=== PATIENT | male | born 1955 | race American Indian/Alaskan Native ===

== ENCOUNTER 2018-12-13 17:00 | Emergency (ER) | payer OTHER ==
[2018-12-13] MEDS ORDERED: CATAPRES PO ONE ×2 (17:14→22:58)
--- NOTE | 2018-12-13 17:14 | Emergency Department Report ---
Blank Doc - Documentation Documentation: This is a 63-year-old male that presents with uncontrolled HTN. Patient denies any headache but states has dizziness. This initial assessment/diagnostic orders/clinical plan/treatment(s) is/are subject to change based on patient's health status, clinical progression and re-assessment by fellow clinical providers in the ED. Further treatment and workup at subsequent clinical providers discretion. Patient/guardians urged not to elope from the ED as their condition may be serious if not clinically assessed and managed. Initial orders include: 1- Patient sent to MAIN ED for further evaluation and treatment 2- Capatress 3- CT head
[2018-12-13 17:32] LABS: Basophils % (Auto) 0.8 % (0.0-1.8); Eosinophils # (Auto) 0.2 K/mm3 (0.0-0.4); Eosinophils % (Auto) 3.7 % (0.0-4.3); Hematocrit 34.2 % (35.5-45.6); Hemoglobin 11.5 gm/dl (11.8-15.2); Lymphocytes # (Auto) 1.5 K/mm3 (1.2-5.4); Lymphocytes % (Auto) 33.6 % (13.4-35.0); Mean Corpuscular HGB Conc 34 % (32-34); Mean Corpuscular Volume 86 fl (84-94); Monocytes # (Auto) 0.3 K/mm3 (0.0-0.8); Monocytes % (Auto) 7.7 % (0.0-7.3); Platelet Count 213 K/mm3 (140-440); Red Blood Count 3.98 M/mm3 (3.65-5.03); Red Cell Distribution Width 15.9 % (13.2-15.2)
[2018-12-13 17:49] LABS: BUN/Creatinine Ratio 8; Blood Urea Nitrogen 8 mg/dL (9-20); Calcium 9.3 mg/dL (8.4-10.2); Hemolysis Index 10
--- NOTE | 2018-12-13 19:11 | Cat Scan Report ---
PROCEDURE: CT HEAD/BRAIN WO CON TECHNIQUE: Computerized tomography of the head was performed without contrast material. Imaging was obtained in axial increments. Sagittal and coronal reconstruction was also obtained. CT DOSE LENGTH PRODUCT: 1840.95 mGycm HISTORY: dizziness with HTN COMPARISONS: None . FINDINGS: The ventricular system is normal in size and configuration. There is no evidence for parenchymal volu me loss. There is no evidence for mass lesion, mass effect, midline shift, acute intracranial hemorrhage, or a cute ischemia/ infarction. No evidence for acute skull fracture is seen. No abnormality in the overlying scalp soft tissues is s een. Visualized paranasal sinuses are clear. IMPRESSION: No acute intracranial process noted. This document is electronically signed by Polly Wellington MD., December 13 2018 07:09:11 PM ET
--- NOTE | 2018-12-13 19:57 | Emergency Department Report ---
ED General Adult HPI - General Chief complaint: High BP Stated complaint: HIGH BP/STOMACH SIDE PAIN Time Seen by Provider: 12/13/18 17:12 Source: patient Mode of arrival: Ambulatory Limitations: No Limitations - History of Present Illness Initial comments: Patient is 63 years old male with history of hypertension. Patient presented to the ER complaining of dizziness and high blood pressure. Patient is also complaining of abdominal pain to the left upper quadrant for the last few days. Patient described his pain as a burning sensation inside. Patient denied any nausea or vomiting. Patient also denied any fever or chills. Patient stated that he missed his clonidine dose this morning. Patient denied any weakness, numbness or tingling sensation. Severity scale (0 -10): 0 - Related Data Home Medications Medication Instructions Recorded Confirmed Last Taken Lisinopril [Zestril] 20 mg PO QDAY 09/04/14 09/04/14 Unknown Previous Rx's Medication Instructions Recorded Last Taken Type Azithromycin [Zithromax Z-DIMAS] 250 mg PO DAILY #6 tablet 09/04/14 Unknown Rx Benzonatate [Tessalon Perles] 100 mg PO Q8HR #14 capsule 09/04/14 Unknown Rx amLODIPine [Norvasc] 10 mg PO DAILY #30 tab 09/04/14 Unknown Rx HYDROcodone/APAP 5-325 [[place] 1 each PO Q6HR PRN #14 tablet 10/10/15 Unknown Rx 5-325 mg TAB] cloNIDine [Catapres] 0.1 mg PO BID #60 tablet 10/10/15 Unknown Rx Allergies Allergy/AdvReac Type Severity Reaction Status Date / Time No Known Allergies Allergy Verified 10/10/15 12:25 ED Review of Systems ROS: Stated complaint: HIGH BP/STOMACH SIDE PAIN Other details as noted in HPI Comment: All other systems reviewed and negative Constitutional: denies: chills, fever Respiratory: denies: cough, shortness of breath, SOB with exertion Cardiovascular: denies: chest pain, palpitations Gastrointestinal: abdominal pain. denies: nausea, vomiting, diarrhea Musculoskeletal: denies: back pain Neurological: denies: headache, weakness, numbness, paresthesias, confusion, abnormal gait ED Past Medical Hx - Past Medical History Hx Hypertension: Yes Additional medical history: Gout. Negative cardiac catheterization on 09/22/2014 - Surgical History Past Surgical History?: No - Social History Smoking Status: Former Smoker Substance Use Type: None - Medications Home Medications: Home Medications Medication Instructions Recorded Confirmed Last Taken Type Azithromycin [Zithromax Z-DIMAS] 250 mg PO DAILY #6 tablet 09/04/14 Unknown Rx Benzonatate [Tessalon Perles] 100 mg PO Q8HR #14 capsule 09/04/14 Unknown Rx Lisinopril [Zestril] 20 mg PO QDAY 09/04/14 09/04/14 Unknown History amLODIPine [Norvasc] 10 mg PO DAILY #30 tab 09/04/14 Unknown Rx HYDROcodone/APAP 5-325 [[place] 1 each PO Q6HR PRN #14 tablet 10/10/15 Unknown Rx 5-325 mg TAB] cloNIDine [Catapres] 0.1 mg PO BID #60 tablet 10/10/15 Unknown Rx ED Physical Exam - General Limitations: No Limitations General appearance: alert, in no apparent distress - Head Head exam: Present: atraumatic, normocephalic, normal inspection - Eye Eye exam: Present: normal appearance - ENT ENT exam: Present: normal exam, normal orophraynx, mucous membranes moist - Neck Neck exam: Present: normal inspection, full ROM. Absent: tenderness, meningismus, lymphadenopathy, thyromegaly - Respiratory Respiratory exam: Present: normal lung sounds bilaterally - Cardiovascular Cardiovascular Exam: Present: regular rate, normal rhythm, normal heart sounds - GI/Abdominal GI/Abdominal exam: Present: soft, tenderness, normal bowel sounds. Absent: distended, guarding, rebound (left upper quadrant), rigid, diminished bowel sounds, mass, bruit, pulsatile mass, hernia - Extremities Exam Extremities exam: Present: normal inspection, full ROM, normal capillary refill. Absent: tenderness, pedal edema, calf tenderness - Back Exam Back exam: Present: normal inspection, full ROM. Absent: tenderness, CVA tenderness (R), CVA tenderness (L), muscle spasm, paraspinal tenderness, vertebral tenderness, rash noted - Neurological Exam Neurological exam: Present: alert, oriented X3, CN II-XII intact, normal gait, reflexes normal - Skin Skin exam: Present: warm, intact, normal color ED Course Vital Signs 12/13/18 12/13/18 12/13/18 17:05 17:10 18:56 Temperature 97.5 F L 97 F L Pulse Rate 68 68 70 Respiratory 20 20 Rate Blood Pressure 208/104 239/110 Blood Pressure 208/104 [Right] O2 Sat by Pulse 98 98 Oximetry 12/13/18 12/13/18 12/13/18 19:38 19:57 22:33 Temperature 97 F L 97 F L 97 F L Pulse Rate 68 72 50 L Respiratory 18 18 18 Rate Blood Pressure Blood Pressure 179/100 158/85 167/86 [Right] O2 Sat by Pulse 98 98 98 Oximetry ED Medical Decision Making - Lab Data Result diagrams: 12/13/18 17:21 12/13/18 17:21 - Radiology Data Radiology results: report reviewed Referring Physician: AUDI DURHAM Patient Name: JUAN MATHEW Date of : 1955 Sex: Male Report Date: 2018-12-13 Report Status: [place] [address] Cat Scan Report Signed Patient: JUAN MATHEW MR#: [id number] : 1955 Acct:[id number] Age/Sex: 63 / M ADM Date: 12/13/18 Loc: ED Attending Dr: Ordering Physician: AUDI DURHAM Date of Service: 12/13/18 Procedure(s): CT abdomen pelvis w con Accession Number(s): [id number] cc: AUDI DURHAM PROCEDURE: CT ABDOMEN PELVIS W CON TECHNIQUE: Computerized axial tomography of the abdomen and pelvis was performed after the IV injection of iodinated nonionic contrast. CT DOSE LENGTH PRODUCT: mGycm HISTORY: abdominal pain/LUQ TENDERNESS COMPARISONS: None . FINDINGS: Multiple small pleural based densities are noted in the visualized right lower lung associated with irregular linear densities in the adjacent lung. Liver, spleen, pancreas and adrenal glands are within normal limits. Bilateral kidneys demonstrate uniform enhancement without hydronephrosis. Urinary bladder is partially filled with normal outlines. Aorta is of normal caliber. There is no free fluid or free air. Gallbladder is contracted. Small bowel loops are within normal limits. There is mild residual stool. Appendix is normal. Moderate degree of prostatomegaly is identified. Vertebral height is normal. Moderate degree of degenerative changes are noted involving the lumbar spine with evidence of spinal canal stenosis at L4-5. An irregular sclerotic density measuring 5 mm is noted in the T11 vertebral body. A 3 mm sclerotic density is noted in the posterior left iliac bone. IMPRESSION: Irregular pleural-based densities in the visualized right lower lung most likely represent round atelectasis. Moderate degree of prostatomegaly Spinal canal stenosis L4-5 Small sclerotic densities involving T11 vertebral body and left iliac bone are of nonspecific nature. Neoplastic lesions such as metastases cannot be excluded in the appropri ate clinical setting. Bone scan may be recommended. This document is electronically signed by Octavio Morales MD., December 13 2018 09:46:28 PM ET Transcribed By: [facility] [place] Dictated By: OCTAVIO MORALES Electronically Authenticated By: OCTAVIO MORALES Signed Date/Time: 12/13/182147 DD/ 26 TD/TT: 12/13/182127 - Medical Decision Making Patient stated that he is feeling much better. Patient and his inform about the CT abdomen and pelvis finding and the need to follow-up for further management. Patient discharged from the ER and a stable clinical condition. Critical care attestation.: If time is entered above; I have spent that time in minutes in the direct care of this critically ill patient, excluding procedure time. ED Disposition Clinical Impression: Abdominal pain, Malignant hypertension Disposition: -01 TO HOME OR SELFCARE Is pt being admited?: No Condition: Stable Instructions: Abdominal Pain (ED), Hypertension (ED) Referrals: [facility] [Other] - 3-5 Days
--- NOTE | 2018-12-13 21:48 | Cat Scan Report ---
PROCEDURE: CT ABDOMEN PELVIS W CON TECHNIQUE: Computerized axial tomography of the abdomen and pelvis was performed after the IV inject ion of iodinated nonionic contrast. CT DOSE LENGTH PRODUCT: mGycm HISTORY: abdominal pain/LUQ TENDERNESS COMPARISONS: None . FINDINGS: Multiple small pleural based densities are noted in the visualized right lower lung associated with i rregular linear densities in the adjacent lung. Liver, spleen, pancreas and adrenal glands are within normal limits. Bilateral kidneys demonstrate uniform enhancement without hydronephrosis. Urinary vanda dder is partially filled with normal outlines. Aorta is of normal caliber. There is no free fluid or free air. Gallbladder is contracted. Small bowel loops are within normal limits. There is mild residu al stool. Appendix is normal. Moderate degree of prostatomegaly is identified. Vertebral height is no rmal. Moderate degree of degenerative changes are noted involving the lumbar spine with evidence of s leonides canal stenosis at L4-5. An irregular sclerotic density measuring 5 mm is noted in the T11 verte bral body. A 3 mm sclerotic density is noted in the posterior left iliac bone. IMPRESSION: Irregular pleural-based densities in the visualized right lower lung most likely represent round atel ectasis. Moderate degree of prostatomegaly Spinal canal stenosis L4-5 Small sclerotic densities involving T11 vertebral body and left iliac bone are of nonspecific nature. Neoplastic lesions such as metastases cannot be excluded in the appropriate clinical setting. Bone s can may be recommended. This document is electronically signed by Robinson Morales MD., December 13 2018 09:46:28 PM ET
[2018-12-14 00:09] VITALS: BP 150/84
== END 2018-12-14 00:13 | disposition home or self-care (01) ==
LOC: ED 17:00
DX: I10 Essential (primary) hypertension (principal); R10.9 Unspecified abdominal pain
CPT/HCPCS: 36415; 70450; 74177; 80048; 85025; 99284; Q9967

== ENCOUNTER 2019-07-13 08:09 | Emergency (ER) | payer OTHER ==
[2019-07-13] MEDS ORDERED: methylPREDNISolone ACETATE 80 MG/1 ML INJ IM ONE (09:12)
[2019-07-13] MEDS ORDERED: IBUPROFEN 800 MG TAB PO ONE (09:12)
[2019-07-13] MEDS ORDERED: COLCHICINE 0.6 MG CAP PO ONE (09:12)
--- NOTE | 2019-07-13 09:16 | Emergency Department Report ---
HPI - General Chief Complaint: Extremity Injury, Upper Time Seen by Provider: 07/13/19 09:07 - HPI HPI: Pt is a pleasant 63 yo male who comes to ER with gout flare. Pt states it has been a while since he had it but its back. No fall or trauma. PMH HTN and gout. Home Rx for BP he thinks amlodipine. co r 5th finger pain; b knee pain; l foot pain and l hand pain r finger and l hand red and swollen Has been hurting for 2 days but he initially ignored it. Today he went to work and it hurt so bad that he came to the ER. 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 He is not sure what the trigger was ED Past Medical Hx - Past Medical History Hx Hypertension: Yes Additional medical history: Gout. Negative cardiac catheterization on 09/22/2014 - Surgical History Past Surgical History?: No - Family History Family history: no significant - Social History Smoking Status: Former Smoker Substance Use Type: None - Medications Home Medications: Home Medications Medication Instructions Recorded Confirmed Last Taken Type Lisinopril [Zestril] 20 mg PO QDAY 09/04/14 09/04/14 Unknown History amLODIPine [Norvasc] 10 mg PO DAILY #30 tab 09/04/14 Unknown Rx cloNIDine [Catapres] 0.1 mg PO BID #60 tablet 12/13/18 Unknown Rx Colchicine 0.6 mg PO DAILY #9 capsule 07/13/19 Unknown Rx Ibuprofen [Motrin] 800 mg PO Q8HR PRN #30 tablet 07/13/19 Unknown Rx predniSONE [Deltasone] 20 mg PO DAILY #5 tablet 07/13/19 Unknown Rx ED Review of Systems ROS: Stated complaint: GOUT/HAND/FOOT/KNEE Other details as noted in HPI Comment: All other systems reviewed and negative Physical Exam - Physical Exam Physical Exam: alert and oriented x 4 r 5th digit red and swollen l hand red and swollen b knees wnl exam l foot wnl exam ambulatory with his usual cane s1s2 lungs cta abd snt ED Medical Decision Making - Medical Decision Making no trauma/fall a/c gout pt has had in past he is on no routine meds for gout; takes no pain meds. Medicated in ER for pain/gout dc home with dc plan of care and pcp follow up this week. - Differential Diagnosis a/c gout Critical care attestation.: If time is entered above; I have spent that time in minutes in the direct care of this critically ill patient, excluding procedure time. ED Disposition Clinical Impression: Gout flare Disposition: TO HOME OR SELFCARE Is pt being admited?: No Does the pt Need Aspirin: No Condition: Stable Instructions: Acute Gouty Arthritis (ED) Additional Instructions: DRINK A LOT OF WATER AND STAY HYDRATED MEDS ORDERED TODAY FOLLOW UP WITH PCP WE DISCUSSED SHE CAN GIVE YOU MEDS TO PREVENT GOUT FLARES TRY TO IDENTIFY TRIGGERS OF GOUT AND AVOID Referrals: PRIMARY CARE, [Primary Care Provider] - 3-5 Days Time of Disposition: 09:13
[2019-07-13 09:31] VITALS: BP 169/95
== END 2019-07-13 10:28 | disposition home or self-care (01) ==
LOC: ED 08:09
DX: M10.9 Gout, unspecified (principal); I10 Essential (primary) hypertension; Z87.891 Personal history of nicotine dependence; Z79.899 Other long term (current) drug therapy
CPT/HCPCS: 96372; 99282; J1040

== ENCOUNTER 2020-06-11 08:23 | Emergency (ER) | payer OTHER ==
[2020-06-11 08:28] VITALS: BP 165/97
[2020-06-11] MEDS ORDERED: dexAMETHasone 20 MG/5 ML VIAL IM ONE (08:42)
[2020-06-11] MEDS ORDERED: traMADol 50 MG TAB PO ONE (08:42)
--- NOTE | 2020-06-11 09:08 | Emergency Department Report ---
ED General Adult HPI - General Chief complaint: Extremity Injury, Lower Stated complaint: GAUT Time Seen by Provider: 06/11/20 08:31 Source: patient Mode of arrival: Wheelchair Limitations: No Limitations - History of Present Illness Initial comments: Patient is a 64-year-old male presents emergency room with complaints of acute gout flare that began 4 days ago. He states that he has a flare in his right knee and his left foot. Patient states he attempts to follow the diet for gout. He is not on any current gout medications. He states that he does have a primary care physician. He denies any fall or injury. He denies any fever, vomiting, diarrhea, numbness, weakness. He states he also has a past medical history of hypertension but states he has not taken his blood pressure medication in 2 days. He states that he does have the medication just forgot to take it. Patient states that he will take the medication once he returns home. - Related Data Home Medications Medication Instructions Recorded Confirmed Last Taken lisinopriL [Zestril] 20 mg PO QDAY 09/04/14 09/04/14 Unknown Previous Rx's Medication Instructions Recorded Last Taken Type amLODIPine 10 mg PO DAILY #30 tab 09/04/14 Unknown Rx cloNIDine [Catapres] 0.1 mg PO BID #60 tablet 12/13/18 Unknown Rx Ibuprofen [Motrin] 800 mg PO Q8HR PRN #30 tablet 07/13/19 Unknown Rx predniSONE [Deltasone] 20 mg PO DAILY #5 tablet 07/13/19 Unknown Rx Colchicine 0.6 mg PO DAILY 1 Days #3 capsule 06/11/20 Unknown Rx Indomethacin 50 mg PO TID 7 Days #21 capsule 06/11/20 Unknown Rx Prednisone [predniSONE 10 mg 10 mg PO .TAPER #1 tab.ds.pk 06/11/20 Unknown Rx (6-Day Pack, 21 Tabs)] Allergies Allergy/AdvReac Type Severity Reaction Status Date / Time No Known Allergies Allergy Verified 07/13/19 08:22 ED Review of Systems ROS: Stated complaint: GAUT Other details as noted in HPI Comment: All other systems reviewed and negative ED Past Medical Hx - Past Medical History Previous Medical History?: Yes Hx Hypertension: Yes Additional medical history: Gout. Negative cardiac catheterization on 09/22/2014 - Surgical History Past Surgical History?: No - Social History Smoking Status: Never Smoker Substance Use Type: None - Medications Home Medications: Home Medications Medication Instructions Recorded Confirmed Last Taken Type amLODIPine 10 mg PO DAILY #30 tab 09/04/14 Unknown Rx lisinopriL [Zestril] 20 mg PO QDAY 09/04/14 09/04/14 Unknown History cloNIDine [Catapres] 0.1 mg PO BID #60 tablet 12/13/18 Unknown Rx Ibuprofen [Motrin] 800 mg PO Q8HR PRN #30 tablet 07/13/19 Unknown Rx predniSONE [Deltasone] 20 mg PO DAILY #5 tablet 07/13/19 Unknown Rx Colchicine 0.6 mg PO DAILY 1 Days #3 capsule 06/11/20 Unknown Rx Indomethacin 50 mg PO TID 7 Days #21 capsule 06/11/20 Unknown Rx Prednisone [predniSONE 10 mg 10 mg PO .TAPER #1 tab.ds.pk 06/11/20 Unknown Rx (6-Day Pack, 21 Tabs)] ED Physical Exam - General Limitations: No Limitations General appearance: alert, in no apparent distress - Head Head exam: Present: atraumatic, normocephalic - Eye Eye exam: Present: normal appearance - ENT ENT exam: Present: mucous membranes moist - Respiratory Respiratory exam: Present: normal lung sounds bilaterally. Absent: respiratory distress, wheezes, rales, rhonchi, stridor, chest wall tenderness, accessory muscle use, decreased breath sounds, prolonged expiratory - Cardiovascular Cardiovascular Exam: Present: regular rate, normal rhythm, normal heart sounds. Absent: systolic murmur, diastolic murmur, rubs, gallop - Extremities Exam Extremities exam: Present: other (edema and increased warmth present to the right knee and the left foot, no erythema, no skin changes, he has FROM of the BLE, he is neurovascularly intact bilaterally) - Neurological Exam Neurological exam: Present: alert, oriented X3 - Psychiatric Psychiatric exam: Present: normal affect, normal mood - Skin Skin exam: Present: warm, dry, intact ED Course Vital Signs 06/11/20 08:24 Temperature 98.7 F Pulse Rate 115 H Respiratory 18 Rate Blood Pressure 165/97 O2 Sat by Pulse 96 Oximetry ED Medical Decision Making - Lab Data Vital Signs 06/11/20 06/11/20 08:24 16:40 Temperature 98.7 F Pulse Rate 115 H 102 H Respiratory 18 Rate Blood Pressure 165/97 O2 Sat by Pulse 96 Oximetry - Medical Decision Making Patient is a 64-year-old male presents emergency room with complaints of acute gout flare that began 4 days ago. He states that he has a flare in his right knee and his left foot. Patient states he attempts to follow the diet for gout. He is not on any current gout medications. He states that he does have a primary care physician. He denies any fall or injury. He denies any fever, vomiting, diarrhea, numbness, weakness. He states he also has a past medical history of hypertension but states he has not taken his blood pressure medication in 2 days. He states that he does have the medication just forgot to take it. Patient states that he will take the medication once he returns home. initial triage vitals with elevated HR which improved upon repeat, BP slightly elevated secondary to pt not taking his medication. on exam: edema and increased warmth present to the right knee and the left foot, no erythema, no skin changes, he has FROM of the BLE, he is neurovascularly intact bilaterally. Examination appears consistent with acute gout flare. Does not appear to have septic joint. Patient given dexamethasone IM in the emergency department as he did not drive. Patient given prescription for colchicine, indomethacin, prednisone Dosepak. Advised patient to please take medication as prescribed. Increase your water intake. Please follow the diet for gout. Please follow-up with your primary care doctor and discuss a chronic gout medication. Please take your blood pressure medication as prescribed by your primary care physician. Eat a low-sodium diet. Incorporate 30 to 60 minutes of aerobic exercise daily. Return to emergency room for any new or worsening symptoms. Critical care attestation.: If time is entered above; I have spent that time in minutes in the direct care of this critically ill patient, excluding procedure time. ED Disposition Clinical Impression: Elevated blood pressure reading Acute gout Qualifiers: Gout site: multiple sites Gout etiology: unspecified cause Qualified Code(s): M10.9 - Gout, unspecified Disposition: - TO HOME OR SELFCARE Is pt being admited?: No Does the pt Need Aspirin: No Condition: Stable Instructions: Acute Gouty Arthritis (ED), Hypertension (ED) Additional Instructions: please take medication as prescribed. Increase your water intake. Please follow the diet for gout. Please follow-up with your primary care doctor and discuss a chronic gout medication. Please take your blood pressure medication as prescribed by your primary care physician. Eat a low-sodium diet. Incorporate 30 to 60 minutes of aerobic exercise daily. Return to emergency room for any new or worsening symptoms. Prescriptions: Colchicine 0.6 mg PO DAILY 1 Days #3 capsule Indomethacin 50 mg PO TID 7 Days #21 capsule Prednisone [predniSONE 10 mg (6-Day Pack, 21 Tabs)] 10 mg PO .TAPER #1 tab.ds.pk Referrals: PRIMARY CAREMD [Primary Care Provider] - 2-3 Days SALVATORE FRANCIS MD [Staff Physician] - 2-3 Days Forms: Work/School Release Form(ED) Time of Disposition: 09:08 Print Language: KAZAKH
== END 2020-06-11 09:21 | disposition home or self-care (01) ==
LOC: ED 08:23
DX: M10.9 Gout, unspecified (principal); R03.0 Elevated blood-pressure reading, without diagnosis of hypertension; I10 Essential (primary) hypertension; Z79.899 Other long term (current) drug therapy
CPT/HCPCS: 96372; 99282; J1100

== ENCOUNTER 2020-12-25 16:54 | Emergency (ER) | payer OTHER ==
[2020-12-25] MEDS ORDERED: hydrALAZINE 25 MG TAB PO ONE (19:39)
--- NOTE | 2020-12-25 20:01 | XRay Report ---
CHEST 1 VIEW 1936 INDICATION / CLINICAL INFORMATION: hypertension congestion COMPARISON: None available. FINDINGS: SUPPORT DEVICES: None HEART / MEDIASTINUM: No significant abnormality. LUNGS / PLEURA: No definite acute infiltrates are seen. There may be slight atelectasis or scarring i n the lung bases. Possibly there is a minimal right pleural effusion. No pneumothorax. ADDITIONAL FINDINGS: No significant additional findings. Signer Name: Chris Hernandez MD Signed: 12/25/2020 7:57 PM Workstation Name: [id number]
[2020-12-25 20:07] LABS: Hemoglobin 11.6 gm/dl (11.8-15.2); Mean Corpuscular HGB Conc 33 % (32-34); Mean Corpuscular Volume 86 fl (84-94); Platelet Count 179 K/mm3 (140-440); Red Blood Count 4.07 M/mm3 (3.65-5.03); Red Cell Distribution Width 17.9 % (13.2-15.2)
[2020-12-25 20:19] LABS: Basophils % (Auto) 1.3 % (0.0-1.8); Eosinophils % (Auto) 11.9 % (0.0-4.3); Lymphocytes # (Auto) 1.1 K/mm3 (1.2-5.4); Lymphocytes % (Auto) 32.9 % (13.4-35.0); Monocytes # (Auto) 0.3 K/mm3 (0.0-0.8); Monocytes % (Auto) 10.1 % (0.0-7.3)
[2020-12-25 20:20] LABS: Eosinophils # (Auto) 0.4 K/mm3 (0.0-0.4)
[2020-12-25 20:30] LABS: Alanine Aminotransferase 14 units/L (7-56); Albumin 4.1 g/dL (3.9-5); BUN/Creatinine Ratio 7; Blood Urea Nitrogen 6 mg/dL (9-20); Calcium 9.4 mg/dL (8.4-10.2); Hemolysis Index 5
--- NOTE | 2020-12-25 21:10 | Emergency Department Report ---
ED General Adult HPI - General Chief complaint: High BP Stated complaint: BLOOD PRESSURE HIGH Time Seen by Provider: 12/25/20 19:36 Source: patient Mode of arrival: Ambulatory Limitations: No Limitations - History of Present Illness Initial comments: Patient 65-year-old male with history of hypertension and gout., who presents after visit to PCP office today with elevated BP 197/104. Patient currently taking lisinopril and amlodipine. Has n jointot taken medications for 2 days. Patient denies chest pain does state upper respiratory symptoms with head congestion. There is no fever, chills, shortness of breath no wheezing no stridor, no nausea vomiting. Patient does state mild headache 2/3 frontal consistent with headaches associated with elevated BP in past. There is no numbness, tingling no loss or decrease in vision no dizziness or lighth eadedness. - Related Data Home Medications Medication Instructions Recorded Confirmed Last Taken lisinopriL [Zestril] 20 mg PO QDAY 09/04/14 09/04/14 Unknown Previous Rx's Medication Instructions Recorded Last Taken Type amLODIPine 10 mg PO DAILY #30 tab 09/04/14 Unknown Rx cloNIDine [Catapres] 0.1 mg PO BID #60 tablet 12/13/18 Unknown Rx Ibuprofen [Motrin] 800 mg PO Q8HR PRN #30 tablet 07/13/19 Unknown Rx predniSONE [Deltasone] 20 mg PO DAILY #5 tablet 07/13/19 Unknown Rx Colchicine 0.6 mg PO DAILY 1 Days #3 capsule 06/11/20 Unknown Rx Indomethacin 50 mg PO TID 7 Days #21 capsule 06/11/20 Unknown Rx Prednisone [predniSONE 10 mg 10 mg PO .TAPER #1 tab.ds.pk 06/11/20 Unknown Rx (6-Day Pack, 21 Tabs)] Allergies Allergy/AdvReac Type Severity Reaction Status Date / Time No Known Allergies Allergy Verified 07/13/19 08:22 ED Review of Systems ROS: Stated complaint: BLOOD PRESSURE HIGH Other details as noted in HPI Constitutional: denies: chills, fever Eyes: denies: eye pain, eye discharge, vision change ENT: denies: ear pain, throat pain Respiratory: denies: cough, shortness of breath, wheezing Cardiovascular: denies: chest pain, palpitations Endocrine: no symptoms reported Gastrointestinal: denies: abdominal pain, nausea, vomiting, diarrhea Genitourinary: denies: urgency, dysuria Musculoskeletal: arthralgia. denies: back pain, joint swelling Skin: denies: rash, lesions Neurological: headache. denies: weakness, numbness, paresthesias, confusion, vertigo Psychiatric: anxiety. denies: depression Hematological/Lymphatic: denies: easy bleeding, easy bruising ED Past Medical Hx - Past Medical History Hx Hypertension: Yes Additional medical history: Gout. Negative cardiac catheterization on 11/23/2013 - Social History Smoking Status: Never Smoker Substance Use Type: None - Medications Home Medications: Home Medications Medication Instructions Recorded Confirmed Last Taken Type amLODIPine 10 mg PO DAILY #30 tab 09/04/14 Unknown Rx lisinopriL [Zestril] 20 mg PO QDAY 09/04/14 09/04/14 Unknown History cloNIDine [Catapres] 0.1 mg PO BID #60 tablet 12/13/18 Unknown Rx Ibuprofen [Motrin] 800 mg PO Q8HR PRN #30 tablet 07/13/19 Unknown Rx predniSONE [Deltasone] 20 mg PO DAILY #5 tablet 07/13/19 Unknown Rx Colchicine 0.6 mg PO DAILY 1 Days #3 capsule 06/11/20 Unknown Rx Indomethacin 50 mg PO TID 7 Days #21 capsule 06/11/20 Unknown Rx Prednisone [predniSONE 10 mg 10 mg PO .TAPER #1 tab.ds.pk 06/11/20 Unknown Rx (6-Day Pack, 21 Tabs)] ED Physical Exam - General Limitations: No Limitations General appearance: alert, in no apparent distress - Head Head exam: Present: atraumatic, normocephalic - Eye Eye exam: Present: normal appearance, PERRL, EOMI Pupils: Present: normal accommodation - ENT ENT exam: Present: mucous membranes moist - Neck Neck exam: Present: normal inspection, full ROM. Absent: tenderness, lymphadenopathy, thyromegaly - Respiratory Respiratory exam: Present: normal lung sounds bilaterally. Absent: respiratory distress, wheezes, stridor, chest wall tenderness - Cardiovascular Cardiovascular Exam: Present: regular rate, normal rhythm, normal heart sounds. Absent: systolic murmur, diastolic murmur, rubs, gallop - GI/Abdominal GI/Abdominal exam: Present: soft, normal bowel sounds. Absent: distended, tenderness, bruit, hernia - Rectal Rectal exam: Present: deferred - Extremities Exam Extremities exam: Present: normal inspection, full ROM, normal capillary refill. Absent: tenderness - Back Exam Back exam: Present: normal inspection, full ROM. Absent: CVA tenderness (R), CVA tenderness (L) - Neurological Exam Neurological exam: Present: alert, oriented X3, CN II-XII intact, normal gait, reflexes normal. Absent: motor sensory deficit - Expanded Neurological Exam Expanded Patient oriented to: Present: person, place, time Speech: Present: fluid speech Motor strength exam: RUE: 5, LUE: 5, RLE: 5, LLE: 5 DTR: knee (R): 2+, knee (L): 2+ Best Eye Response (Christoval): (4) open spontaneously Best Motor Response (Christoval): (6) obeys commands Best Verbal Response (Christoval): (5) oriented [place] Total: 15 - Psychiatric Psychiatric exam: Present: normal affect, normal mood - Skin Skin exam: Present: warm, dry, intact, normal color. Absent: rash ED Course Vital Signs 12/25/20 17:34 Temperature 98.1 F Pulse Rate 58 L Respiratory 20 Rate Blood Pressure 197/104 O2 Sat by Pulse 98 Oximetry ED Medical Decision Making - Lab Data Result diagrams: 12/25/20 19:51 12/25/20 19:51 Labs 12/25/20 12/25/20 12/25/20 19:51 19:51 19:51 WBC 3.3 L RBC 4.07 Hgb 11.6 L Hct 35.0 L MCV 86 MCH 29 MCHC 33 RDW 17.9 H Plt Count 179 Lymph % (Auto) 32.9 Hall % (Auto) 10.1 H Eos % (Auto) 11.9 H Baso % (Auto) 1.3 Lymph # (Auto) 1.1 L Hall # (Auto) 0.3 Eos # (Auto) 0.4 Baso # (Auto) 0.0 Seg Neutrophils % 43.8 Seg Neutrophils # 1.4 L Sodium 140 Potassium 3.9 Chloride 103.3 Carbon Dioxide 31 H Anion Gap 10 BUN 6 L Creatinine 0.9 Estimated GFR > 60 BUN/Creatinine Ratio 7 Glucose 81 Calcium 9.4 Total Bilirubin 0.70 AST 23 ALT 14 Alkaline Phosphatase 108 Troponin T < 0.010 Total Protein 7.3 Albumin 4.1 Albumin/Globulin Ratio 1.3 - Radiology Data Radiology results: report reviewed, image reviewed Ordering Physician: MELLY PÉREZ NP Date of Service: 12/25/20 Procedure(s): XR chest 1V ap Accession Number(s): [id number] cc: MELLY PÉREZ NP Fluoro Time In Minutes: CHEST 1 VIEW 1935 INDICATION / CLINICAL INFORMATION: hypertension congestion COMPARISON: None available. FINDINGS: SUPPORT DEVICES: None HEART / MEDIASTINUM: No significant abnormality. LUNGS / PLEURA: No definite acute infiltrates are seen. There may be slight atelectasis or scarring in the lung bases. Possibly there is a minimal right pleural effusion. No pneumothorax. ADDITIONAL FINDINGS: No significant additional findings. Signer Name: Chris Hernandez MD Signed: 12/25/2020 7:57 PM Workstation Name: [id number] Transcribed By: OLIVIA Dictated By: Chris Hernandez MD Electronically Authenticated By: Chris Hernandez MD Signed Date/Time: 12/25/201956 DD/ 55 TD/TT: - Medical Decision Making EKG normal sinus bradycardia no ST elevated ID EKG interpreted by ED attending, chest x-ray normal no infiltrates no opacities, labs normal troponin is negative heart score 0. BP is improved with medications given in ED. Patient has prescriptions for medications is picking up at this time. Patient encouraged to take medications as directed. Patient will follow up with primary care doctor in 2 to 3 days. Patient DC'd home in stable condition at this time. Critical care attestation.: If time is entered above; I have spent that time in minutes in the direct care of this critically ill patient, excluding procedure time. ED Disposition Clinical Impression: HTN (hypertension) Qualifiers: Hypertension type: essential hypertension Qualified Code(s): I10 - Essential (primary) hypertension Disposition: DC-01 TO HOME OR SELFCARE Is pt being admited?: No Does the pt Need Aspirin: No Condition: Stable Instructions: Hypertension (ED), Hypertension, Adult, [id number], Managing Your Hypertension Additional Instructions: take medications as prescribed, Amlodipine, lisinopril, and clonidine. follow up with your doctor in 2-3 days as scheduled. Return to emergency if symptoms worsen. Referrals: PRIMARY CARE, [Primary Care Provider] - 3-5 Days Forms: Work/School Release Form(ED) Time of Disposition: 22:07
[2020-12-25 22:24] LABS: Bilirubin,Urine NEG (Negative); Blood,Urine NEG (Negative); Color,Urine Yellow (Yellow); Mucus,Urine FEW /HPF; Protein,Urine <15 mg/dL mg/dL (Negative); Urobilinogen,Urine < 2.0 mg/dL (<2.0)
[2020-12-25 23:54] VITALS: BP 195/91
--- NOTE | 2020-12-27 11:15 | Electrocardiograph Report ---
[facility] Test Date: 2020-12-25 Test Time: 21:50:49 Pat Name: JUAN MATHEW Department: Room: Gender: M Pals Specialist: RANDY : 1955 Requested By: MELLY PÉREZ Order Number: [id number] Reading MD: Mio Renee Measurements Intervals [place] Rate: 56 P: 49 WV: 176 QRS: 32 QRSD: 99 T: 66 QT: 474 QTc: 458 Interpretive Statements Sinus bradycardia No previous ECG available for comparison Electronically Signed On 12-27-2020 8:14:30 PDT by Mio Renee
== END 2020-12-25 22:15 | disposition home or self-care (01) ==
LOC: ED 16:54
DX: I10 Essential (primary) hypertension (principal); Z79.899 Other long term (current) drug therapy
CPT/HCPCS: 36415; 71045; 80053; 81001; 84484; 85025; 93005